=== PATIENT | female | born 1930 | race Caucasian/White ===

== ENCOUNTER 2019-10-30 14:56 | Inpatient (IN) ==
[2019-10-30] MEDS ORDERED: Ondansetron 4 MG/2 ML VIAL IVP ONE (15:03)
[2019-10-30] MEDS ORDERED: *HR* Labetalol 20 MG/4 ML SYRINGE IVP ONE (15:03)
[2019-10-30 15:32] LABS: Basophils # 0.1 K/mcL (0.0-0.2); Basophils % 0.9 %; Eosinophils # 0.1 K/mcL (0.0-0.6); Eosinophils % 1.6 %; Hemoglobin 14.4 g/dL (11.5-15.4); Immature Granulocytes % 0.2 % (0-4); Lymphocytes % 17.1 %; Mean Corpuscular HGB Conc 33.5 g/dL (31.6-35.5); Mean Corpuscular Hemoglobin 30.1 pg (28.0-33.3); Mean Corpuscular Volume 89.8 fL (83.0-100.0); Mean Platelet Volume 9.8 fL (9.4-12.4); Monocytes # 0.4 K/mcL (0.0-1.3); Monocytes % 7.6 %; Neutrophils # 4.1 K/mcL (1.6-8.9); Platelet Count 193 K/mcL (140-400); Red Blood Count 4.79 M/mcL (3.82-4.97); Segmented Neutrophils % 72.6 %; White Blood Count 5.6 K/mcL (4.3-11.1)
[2019-10-30 15:43] LABS: Prothrombin Time 11.4 Seconds (9.4-12.1)
[2019-10-30 15:59] LABS: Alanine Aminotransferase 16 Units/L (7-52); Albumin 4.5 g/dL (3.5-5.7); Albumin/Globulin Ratio 1.4 (1.1-2.2); Alkaline Phosphatase 55 Units/L (34-104); Aspartate Amino Transferase 23 Units/L (13-39); BUN/Creatinine Ratio 23 (6-26); Bilirubin,Direct 0.1 mg/dL (0.0-0.2); Bilirubin,Indirect 0.7 mg/dL (0.0-1.0); Bilirubin,Total 0.8 mg/dL (0.3-1.0); Blood Urea Nitrogen 17 mg/dL (8-23); Calcium 9.8 mg/dL (8.6-10.3); Carbon Dioxide 27 mEq/L (23-29); Chloride 96 mEq/L (98-107); Globulin 3.2 g/dL (2.4-3.5); Glucose 121 mg/dL (70-105); Lipase 29 Units/L (11-82); Osmolality,Calculated 279 (280-300); Potassium 3.9 mEq/L (3.5-5.1); Sodium 133 mEq/L (136-145); Total Protein 7.7 g/dL (6.4-8.9); Troponin I < 0.03 ng/mL (< 0.04); eGFR For African Americans > 60 (> 60); eGFR For Non-African Americans > 60 (> 60)
[2019-10-30] MEDS ORDERED: *HR* OxyCODONE/APAP 5/325 TABLET PO ONE (16:49)
[2019-10-30] MEDS ORDERED: Aspirin 325 MG TABLET PO ONE (17:06)
[2019-10-30] MEDS ORDERED: Ondansetron 4 MG/2 ML VIAL IVP PRN (17:48)
[2019-10-30] MEDS ORDERED: Acetaminophen 325 MG TABLET PO PRN (17:48)
[2019-10-30] MEDS ORDERED: Naloxone 0.4 MG/ML INJ IVP PRN (17:48)
[2019-10-30] MEDS ORDERED: *HR* Labetalol 20 MG/4 ML SYRINGE IVP PRN (17:54)
[2019-10-30 21:09] LABS: Bilirubin,Urine Negative (Negative); Blood,Urine Trace (Negative); Clarity,Urine Clear (Clear); Color,Urine Yellow (Yellow); Glucose,Urine (UA) Normal (Normal); Ketones,Urine Negative (Negative); Leukocyte Esterase,Urine Negative (Negative); Nitrite,Urine Negative (Negative); Protein,Urine 30 mg/dL (Neg-Trace); Specific Gravity,Urine 1.013 (1.010-1.025); Urobilinogen,Urine Normal (Normal)
[2019-10-30 21:11] LABS: Bacteria,Urine None Seen per hpf (None-Few); Hyaline Casts,Urine None Seen per lpf (None-Few); Squamous Epithelial Cell,Urine Few per lpf (None-Few); WBC,Urine 0-3 per hpf (0-3)
[2019-10-30] MEDS ORDERED: Morphine Sulfate 2 MG/ML SYRINGE IVP ONE (21:19)
[2019-10-30] MEDS ORDERED: Ketorolac 15 MG/ML VIAL IVP PRN (21:31)
[2019-10-30] MEDS ORDERED: Gabapentin 300 MG CAPSULE PO ONE (23:06)
[2019-10-31] MEDS: *HR* OxyCODONE/APAP 5/325 TABLET PO PRN ×3 (02:37→23:22)
[2019-10-31 04:21] LABS: BUN/Creatinine Ratio 25 (6-26); Blood Urea Nitrogen 16 mg/dL (8-23); Calcium 9.3 mg/dL (8.6-10.3); Carbon Dioxide 26 mEq/L (23-29); Chloride 97 mEq/L (98-107); Chol/HDL Ratio 2.7 (0-4.9); Cholesterol 159 mg/dL (< 200); Glucose 102 mg/dL (70-105); HDL Cholesterol 60 mg/dL (40-59); LDL Cholesterol,Calculated 86 mg/dL (0-99); Osmolality,Calculated 275 (280-300); Potassium 3.6 mEq/L (3.5-5.1); Sodium 132 mEq/L (136-145); Triglycerides 64 mg/dL (< 150); eGFR For African Americans > 60 (> 60); eGFR For Non-African Americans > 60 (> 60)
[2019-10-31] MEDS: Aspirin Enteric Coated 81 MG Tablet PO SCH (08:02)
[2019-10-31] MEDS: Gabapentin 300 MG CAPSULE PO SCH ×3 (08:24→21:55)
[2019-10-31 15:33] LABS: Estimated Average Glucose 126 mg/dl
[2019-11-01] MEDS: *HR* OxyCODONE/APAP 5/325 TABLET PO PRN ×2 (06:19→12:23)
[2019-11-01] MEDS ORDERED: *HR* Labetalol 20 MG/4 ML SYRINGE IVP PRN (07:54)
[2019-11-01 08:18] LABS: BUN/Creatinine Ratio 31 (6-26); Blood Urea Nitrogen 20 mg/dL (8-23); Calcium 9.5 mg/dL (8.6-10.3); Carbon Dioxide 29 mEq/L (23-29); Chloride 99 mEq/L (98-107); Glucose 81 mg/dL (70-105); Osmolality,Calculated 282 (280-300); Potassium 3.4 mEq/L (3.5-5.1); Sodium 135 mEq/L (136-145); eGFR For African Americans > 60 (> 60); eGFR For Non-African Americans > 60 (> 60)
[2019-11-01 08:40] LABS: Magnesium 1.8 mg/dL (1.6-2.6); Phosphorous 2.8 mg/dL (2.7-4.5)
[2019-11-01] MEDS: Aspirin Enteric Coated 81 MG Tablet PO SCH (08:59)
[2019-11-01] MEDS: Gabapentin 300 MG CAPSULE PO SCH (08:59)
[2019-11-01] MEDS ORDERED: atenoloL 25 MG TABLET PO SCH (09:00)
[2019-11-01] MEDS ORDERED: amLODIPine 5 MG TABLET PO SCH (09:00)
[2019-11-01 11:24] VITALS: BP 126/70
[2019-11-01] MEDS ORDERED: *HR* Heparin 5,000 UNIT/ML VIAL SQ SCH (18:00)
== END 2019-11-01 13:49 | DRG 305 ==
LOC: EMEROOARM 14:56 → 3BNU 14:56 → SUATTDRO 17:15 → 3BNU 17:45
PROVIDERS: ADMIT Internal Medicine; ATTEND Internal Medicine

== ENCOUNTER 2020-05-31 09:55 | Inpatient (IN) ==
[2020-05-31 11:22] LABS: Basophils % 0.1 %; Hematocrit 46.8 % (35.3-44.9); Hemoglobin 15.5 g/dL (11.5-15.4); Immature Granulocytes % 0.3 % (0-4); Lymphocytes # 0.7 K/mcL (0.6-4.6); Mean Corpuscular HGB Conc 33.1 g/dL (31.6-35.5); Mean Corpuscular Hemoglobin 29.1 pg (28.0-33.3); Mean Corpuscular Volume 87.8 fL (83.0-100.0); Monocytes # 0.9 K/mcL (0.0-1.3); Monocytes % 12.9 %; Neutrophils # 5.3 K/mcL (1.6-8.9); Platelet Count 151 K/mcL (140-400); Red Blood Count 5.33 M/mcL (3.82-4.97); Red Cell Distribution Width 15.2 % (11.5-14.5); Segmented Neutrophils % 76.7 %; White Blood Count 6.9 K/mcL (4.3-11.1)
[2020-05-31 11:27] LABS: INR 1.2; Prothrombin Time 13.3 Seconds (9.4-12.1)
[2020-05-31 11:46] LABS: BUN/Creatinine Ratio 39 (6-26); Blood Urea Nitrogen 32 mg/dL (8-23); Calcium 9.3 mg/dL (8.6-10.3); Carbon Dioxide 28 mEq/L (23-29); Chloride 93 mEq/L (98-107); Glucose 95 mg/dL (70-105); Osmolality,Calculated 285 (280-300); Sodium 134 mEq/L (136-145); Troponin I 0.08 ng/mL (< 0.04); eGFR For African Americans > 60 (> 60); eGFR For Non-African Americans > 60 (> 60)
[2020-05-31] MEDS ORDERED: cefTRIAXone 1,000 MG in 0.9 % Sodium Chloride Mini Bag 100 ML IVPB ONE (11:57)
[2020-05-31] MEDS ORDERED: Azithromycin 500 MG in 0.9 % Sodium Chloride 250 ML IVPB ONE (11:57)
[2020-05-31] MEDS ORDERED: Potassium Effervescent 25 MEQ TABLET.EFF PO ONE (11:57)
[2020-05-31 12:00] LABS: Creatine Kinase 7032 Units/L (30-223)
[2020-05-31 12:09] LABS: Bilirubin,Urine Negative (Negative); Blood,Urine Large (Negative); Clarity,Urine Clear (Clear); Color,Urine Yellow (Yellow); Glucose,Urine (UA) Normal (Normal); Ketones,Urine 20 mg/dL (Negative); Leukocyte Esterase,Urine Negative (Negative); Mucus,Urine Few per lpf (None-Few); Nitrite,Urine Negative (Negative); PH,Urine 6.5 pH Units (5.0-8.0); Protein,Urine >=300 mg/dL (Neg-Trace); Specific Gravity,Urine 1.025 (1.010-1.025); Squamous Epithelial Cell,Urine Few per hpf (None-Few); Urobilinogen,Urine Normal (Normal)
[2020-05-31 12:28] LABS: Amphetamine Screen,Urine Negative ng/mL (Cutoff=1000); Barbiturate Screen,Urine Negative ng/mL (Cutoff=200); Benzodiazepines Screen,Urine Negative ng/mL (Cutoff=200); Cannabinoid Screen,Urine Negative ng/mL (Cutoff = 50); Cocaine Screen,Urine Negative ng/mL (Cutoff= 300); Opiate Screen,Urine Negative ng/mL (Cutoff=300); Phencyclidine Screen,Urine Negative ng/mL (Cutoff=25)
[2020-05-31] MEDS ORDERED: Aspirin 81 MG TAB.CHEW PO ONE (12:42)
[2020-05-31] MEDS ORDERED: 0.9 % Sodium Chloride 1,000 ML IVC SCH (12:45)
[2020-05-31] MEDS ORDERED: Naloxone 0.4 MG/ML INJ IVP PRN (14:27)
[2020-05-31 17:39] LABS: Fibrinogen 230 mg/dL (169-393)
[2020-05-31 17:41] LABS: D-Dimer 1043 ng/mLFEU (0-500)
[2020-05-31 18:02] LABS: Albumin 3.6 g/dL (3.5-5.7); Albumin/Globulin Ratio 1.2 (1.1-2.2); Bilirubin,Direct 0.2 mg/dL (0.0-0.2); Bilirubin,Indirect 1.1 mg/dL (0.0-1.0); Bilirubin,Total 1.3 mg/dL (0.3-1.0); Globulin 3.1 g/dL (2.4-3.5); Total Protein 6.7 g/dL (6.4-8.9)
[2020-05-31] MEDS: *HR* Heparin 5,000 UNIT/ML VIAL SQ SCH (18:09)
[2020-05-31] MEDS: *HR* Metoprolol 5 MG/5 ML VIAL IVP PRN ×2 (20:33→22:07)
[2020-06-01] MEDS: DilTIAZem 50 MG/50 ML IV.SOLN IVC SCH ×7 (00:32→22:31)
[2020-06-01] MEDS ORDERED: Morphine Sulfate 2 MG/ML SYRINGE IVP ONE (00:54)
[2020-06-01 03:23] LABS: Basophils % 0.2 %; Hematocrit 45.1 % (35.3-44.9); Hemoglobin 15.2 g/dL (11.5-15.4); Immature Granulocytes % 0.5 % (0-4); Lymphocytes # 0.6 K/mcL (0.6-4.6); Lymphocytes % 9.2 %; Mean Corpuscular HGB Conc 33.7 g/dL (31.6-35.5); Mean Corpuscular Hemoglobin 29.8 pg (28.0-33.3); Mean Corpuscular Volume 88.4 fL (83.0-100.0); Mean Platelet Volume 9.9 fL (9.4-12.4); Monocytes # 0.7 K/mcL (0.0-1.3); Monocytes % 11.8 %; Neutrophils # 4.7 K/mcL (1.6-8.9); Platelet Count 161 K/mcL (140-400); Red Cell Distribution Width 15.2 % (11.5-14.5); Segmented Neutrophils % 78.3 %
[2020-06-01 04:00] LABS: Alanine Aminotransferase 65 Units/L (7-52); Albumin 3.8 g/dL (3.5-5.7); Albumin/Globulin Ratio 1.2 (1.1-2.2); Alkaline Phosphatase 61 Units/L (34-104); Aspartate Amino Transferase 150 Units/L (13-39); BUN/Creatinine Ratio 43 (6-26); Bilirubin,Direct 0.2 mg/dL (0.0-0.2); Bilirubin,Indirect 1.2 mg/dL (0.0-1.0); Bilirubin,Total 1.4 mg/dL (0.3-1.0); Blood Urea Nitrogen 22 mg/dL (8-23); Calcium 9.1 mg/dL (8.6-10.3); Carbon Dioxide 28 mEq/L (23-29); Chloride 93 mEq/L (98-107); Creatine Kinase 3367 Units/L (30-223); Globulin 3.3 g/dL (2.4-3.5); Glucose 91 mg/dL (70-105); Osmolality,Calculated 283 (280-300); Potassium 2.6 mEq/L (3.5-5.1); Sodium 135 mEq/L (136-145); Total Protein 7.1 g/dL (6.4-8.9); eGFR For African Americans > 60 (> 60); eGFR For Non-African Americans > 60 (> 60)
[2020-06-01] MEDS: *HR* Heparin 5,000 UNIT/ML VIAL SQ SCH ×2 (05:36→17:55)
[2020-06-01] MEDS: cefTRIAXone 1,000 MG in Water for inj. (sterile) 10 ML IVP SCH (08:12)
[2020-06-01 08:30] LABS: Magnesium 1.7 mg/dL (1.6-2.6); Phosphorous 1.9 mg/dL (2.7-4.5)
[2020-06-01] MEDS ORDERED: Potassium Phosphate 44 MEQ in 0.9 % Sodium Chloride 250 ML IVPB ONE (09:44)
[2020-06-01] MEDS ORDERED: Acetaminophen 325 MG TABLET PO ONE (11:55)
[2020-06-01] MEDS: Azithromycin 500 MG in 0.9 % Sodium Chloride 250 ML IVPB SCH (12:11)
[2020-06-01 13:27] LABS: BUN/Creatinine Ratio 43 (6-26); Blood Urea Nitrogen 22 mg/dL (8-23); Calcium 9.1 mg/dL (8.6-10.3); Carbon Dioxide 27 mEq/L (23-29); Chloride 93 mEq/L (98-107); Glucose 98 mg/dL (70-105); Osmolality,Calculated 281 (280-300); Potassium 3.2 mEq/L (3.5-5.1); Sodium 134 mEq/L (136-145); eGFR For African Americans > 60 (> 60); eGFR For Non-African Americans > 60 (> 60)
[2020-06-01] MEDS ORDERED: 0.9 % Sodium Chloride 1,000 ML IVC SCH (13:30)
[2020-06-01] MEDS ORDERED: *HR* Metoprolol 5 MG/5 ML VIAL IVP PRN (18:11)
[2020-06-01] MEDS: *HR* OxyCODONE Immed Rel 5 MG TABLET PO PRN ×2 (18:26→22:36)
[2020-06-01] MEDS: Gabapentin 300 MG CAPSULE PO SCH (21:01)
[2020-06-02] MEDS: DilTIAZem 50 MG/50 ML IV.SOLN IVC SCH ×5 (01:37→23:48)
[2020-06-02] MEDS: *HR* OxyCODONE Immed Rel 5 MG TABLET PO PRN ×4 (03:20→19:38)
[2020-06-02] MEDS: *HR* Heparin 5,000 UNIT/ML VIAL SQ SCH ×2 (05:03→17:16)
[2020-06-02 06:15] LABS: Basophils % 0.1 %; Hematocrit 43.1 % (35.3-44.9); Hemoglobin 14.2 g/dL (11.5-15.4); Immature Granulocytes % 0.4 % (0-4); Lymphocytes # 0.4 K/mcL (0.6-4.6); Lymphocytes % 5.8 %; Mean Corpuscular HGB Conc 32.9 g/dL (31.6-35.5); Mean Corpuscular Hemoglobin 28.9 pg (28.0-33.3); Mean Corpuscular Volume 87.6 fL (83.0-100.0); Mean Platelet Volume 9.9 fL (9.4-12.4); Monocytes # 0.6 K/mcL (0.0-1.3); Monocytes % 9.3 %; Neutrophils # 5.8 K/mcL (1.6-8.9); Platelet Count 170 K/mcL (140-400); Red Blood Count 4.92 M/mcL (3.82-4.97); Red Cell Distribution Width 15.4 % (11.5-14.5); Segmented Neutrophils % 84.4 %; White Blood Count 6.9 K/mcL (4.3-11.1)
[2020-06-02 06:38] LABS: BUN/Creatinine Ratio 52 (6-26); Blood Urea Nitrogen 23 mg/dL (8-23); Calcium 8.5 mg/dL (8.6-10.3); Carbon Dioxide 24 mEq/L (23-29); Chloride 98 mEq/L (98-107); Glucose 96 mg/dL (70-105); Magnesium 1.7 mg/dL (1.6-2.6); Osmolality,Calculated 286 (280-300); Phosphorous 1.8 mg/dL (2.7-4.5); Sodium 136 mEq/L (136-145); eGFR For African Americans > 60 (> 60); eGFR For Non-African Americans > 60 (> 60)
[2020-06-02] MEDS ORDERED: Potassium Phosphate 44 MEQ in 0.9 % Sodium Chloride 250 ML IVPB ONE (07:35)
[2020-06-02] MEDS: atenoloL 25 MG TABLET PO SCH (08:52)
[2020-06-02] MEDS: cefTRIAXone 1,000 MG in Water for inj. (sterile) 10 ML IVP SCH (08:52)
[2020-06-02] MEDS: Gabapentin 300 MG CAPSULE PO SCH ×3 (08:52→19:38)
[2020-06-02] MEDS: Azithromycin 500 MG in 0.9 % Sodium Chloride 250 ML IVPB SCH (10:36)
[2020-06-03] MEDS: *HR* OxyCODONE Immed Rel 5 MG TABLET PO PRN ×4 (00:07→22:39)
[2020-06-03] MEDS: *HR* Metoprolol 5 MG/5 ML VIAL IVP PRN (03:06)
[2020-06-03 03:42] LABS: BUN/Creatinine Ratio 66 (6-26); Blood Urea Nitrogen 31 mg/dL (8-23); Calcium 8.1 mg/dL (8.6-10.3); Carbon Dioxide 30 mEq/L (23-29); Chloride 102 mEq/L (98-107); Glucose 106 mg/dL (70-105); Magnesium 2.3 mg/dL (1.6-2.6); Osmolality,Calculated 293 (280-300); Phosphorous 1.8 mg/dL (2.7-4.5); Potassium 3.7 mEq/L (3.5-5.1); Sodium 138 mEq/L (136-145); eGFR For African Americans > 60 (> 60); eGFR For Non-African Americans > 60 (> 60)
[2020-06-03] MEDS: *HR* Heparin 5,000 UNIT/ML VIAL SQ SCH ×2 (04:39→16:30)
[2020-06-03] MEDS ORDERED: Potassium Phosphate 44 MEQ in 0.9 % Sodium Chloride 250 ML IVPB ONE (07:28)
[2020-06-03] MEDS: cefTRIAXone 1,000 MG in Water for inj. (sterile) 10 ML IVP SCH (08:07)
[2020-06-03] MEDS: Azithromycin 500 MG in 0.9 % Sodium Chloride 250 ML IVPB SCH (08:07)
[2020-06-03] MEDS: Gabapentin 300 MG CAPSULE PO SCH ×3 (08:08→20:22)
[2020-06-03] MEDS: atenoloL 25 MG TABLET PO SCH (08:08)
[2020-06-03] MEDS ORDERED: *HR* OxyCODONE Immed Rel 5 MG TABLET PO PRN ×2 (10:21→11:51)
[2020-06-04] MEDS: *HR* Heparin 5,000 UNIT/ML VIAL SQ SCH ×2 (05:13→17:58)
[2020-06-04] MEDS: *HR* Metoprolol 5 MG/5 ML VIAL IVP PRN (05:14)
[2020-06-04] MEDS: *HR* OxyCODONE Immed Rel 5 MG TABLET PO PRN ×2 (05:14→19:53)
[2020-06-04 08:14] LABS: VBG Ionized Calcium 1.08 mmol/L (1.15-1.35)
[2020-06-04] MEDS ORDERED: Furosemide 40 MG/4 ML VIAL IVP ONE (08:16)
[2020-06-04] MEDS ORDERED: *HR* OxyCODONE Immed Rel 5 MG TABLET PO PRN (08:18)
[2020-06-04 08:32] LABS: BUN/Creatinine Ratio 63 (6-26); Blood Urea Nitrogen 29 mg/dL (8-23); Calcium 8.7 mg/dL (8.6-10.3); Carbon Dioxide 32 mEq/L (23-29); Chloride 103 mEq/L (98-107); Glucose 109 mg/dL (70-105); Magnesium 2.1 mg/dL (1.6-2.6); Osmolality,Calculated 296 (280-300); Phosphorous 1.5 mg/dL (2.7-4.5); Potassium 4.2 mEq/L (3.5-5.1); Sodium 140 mEq/L (136-145); eGFR For African Americans > 60 (> 60); eGFR For Non-African Americans > 60 (> 60)
[2020-06-04] MEDS: cefTRIAXone 1,000 MG in Water for inj. (sterile) 10 ML IVP SCH (09:23)
[2020-06-04] MEDS: Gabapentin 300 MG CAPSULE PO SCH ×3 (09:23→19:52)
[2020-06-04] MEDS: atenoloL 25 MG TABLET PO SCH (09:23)
[2020-06-04] MEDS: Azithromycin 500 MG in 0.9 % Sodium Chloride 250 ML IVPB SCH (09:24)
[2020-06-04] MEDS: Dexamethasone 4 MG/ML VIAL IVP SCH (09:25)
[2020-06-04] MEDS ORDERED: Acetaminophen IV 1,000 MG/100 ML BAG IVPB ONE (09:30)
[2020-06-04] MEDS ORDERED: Potassium Phosphate 44 MEQ in 0.9 % Sodium Chloride 250 ML IVPB ONE (13:31)
[2020-06-04] MEDS ORDERED: *HR* LORazepam 0.5 MG TABLET PO PRN (13:33)
[2020-06-04] MEDS ORDERED: Calcium Gluconate 1gm/50mL 1 GM/50 ML BAG IVPB ONE (13:35)
[2020-06-04 14:40] LABS: Alanine Aminotransferase 38 Units/L (7-52); Albumin 3.2 g/dL (3.5-5.7); Albumin/Globulin Ratio 0.9 (1.1-2.2); Alkaline Phosphatase 57 Units/L (34-104); Aspartate Amino Transferase 53 Units/L (13-39); Bilirubin,Direct 0.3 mg/dL (0.0-0.2); Bilirubin,Indirect 0.7 mg/dL (0.0-1.0); Globulin 3.4 g/dL (2.4-3.5); Total Protein 6.6 g/dL (6.4-8.9)
[2020-06-04] MEDS: *HR* LORazepam 0.5 MG TABLET PO PRN (19:52)
[2020-06-04] MEDS ORDERED: Furosemide 20 MG/2 ML VIAL IVP ONE (20:00)
[2020-06-05] MEDS: *HR* OxyCODONE Immed Rel 5 MG TABLET PO PRN ×2 (03:28→08:47)
[2020-06-05] MEDS: *HR* LORazepam 0.5 MG TABLET PO PRN ×3 (03:29→21:47)
[2020-06-05] MEDS: *HR* Heparin 5,000 UNIT/ML VIAL SQ SCH (05:16)
[2020-06-05 05:54] LABS: Basophils % 0.5 %; Hematocrit 43.2 % (35.3-44.9); Hemoglobin 13.7 g/dL (11.5-15.4); Lymphocytes # 0.3 K/mcL (0.6-4.6); Lymphocytes % 3.4 %; Mean Corpuscular HGB Conc 31.7 g/dL (31.6-35.5); Mean Corpuscular Hemoglobin 28.4 pg (28.0-33.3); Mean Corpuscular Volume 89.6 fL (83.0-100.0); Mean Platelet Volume 9.8 fL (9.4-12.4); Monocytes # 0.5 K/mcL (0.0-1.3); Monocytes % 5.9 %; Neutrophils # 6.7 K/mcL (1.6-8.9); Platelet Count 209 K/mcL (140-400); Red Blood Count 4.82 M/mcL (3.82-4.97); Red Cell Distribution Width 15.6 % (11.5-14.5); Segmented Neutrophils % 86.2 %; White Blood Count 7.7 K/mcL (4.3-11.1)
[2020-06-05 06:18] LABS: BUN/Creatinine Ratio 73 (6-26); Blood Urea Nitrogen 30 mg/dL (8-23); Calcium 8.6 mg/dL (8.6-10.3); Carbon Dioxide 32 mEq/L (23-29); Chloride 101 mEq/L (98-107); Glucose 144 mg/dL (70-105); Magnesium 1.9 mg/dL (1.6-2.6); Osmolality,Calculated 299 (280-300); Phosphorous 2.2 mg/dL (2.7-4.5); Potassium 3.8 mEq/L (3.5-5.1); Sodium 140 mEq/L (136-145); eGFR For African Americans > 60 (> 60); eGFR For Non-African Americans > 60 (> 60)
[2020-06-05] MEDS ORDERED: Potassium Phosphate 44 MEQ in 0.9 % Sodium Chloride 250 ML IVPB ONE (07:18)
[2020-06-05] MEDS ORDERED: Furosemide 40 MG/4 ML VIAL IVP ONE (07:18)
[2020-06-05] MEDS: atenoloL 25 MG TABLET PO SCH (08:48)
[2020-06-05] MEDS: Gabapentin 300 MG CAPSULE PO SCH ×3 (08:48→21:47)
[2020-06-05] MEDS: Azithromycin 500 MG in 0.9 % Sodium Chloride 250 ML IVPB SCH (08:48)
[2020-06-05] MEDS: Dexamethasone 4 MG/ML VIAL IVP SCH (08:49)
[2020-06-05] MEDS: cefTRIAXone 1,000 MG in Water for inj. (sterile) 10 ML IVP SCH (08:50)
[2020-06-05] MEDS: Pantoprazole 40 MG VIAL IVP SCH (11:34)
[2020-06-05] MEDS ORDERED: Dexamethasone 4 MG/ML VIAL IVP ONE (15:09)
[2020-06-05] MEDS ORDERED: Remdesivir 200 MG in 0.9 % Sodium Chloride 100 ML IVPB ONE (16:00)
[2020-06-05] MEDS: *HR* Metoprolol 5 MG/5 ML VIAL IVP PRN (23:22)
[2020-06-06] MEDS ORDERED: *HR* Enoxaparin 40 MG/0.4 ML SYRINGE SQ SCH ×2 (06:00→21:00)
[2020-06-06] MEDS: Gabapentin 300 MG CAPSULE PO SCH ×4 (07:34→21:46)
[2020-06-06] MEDS: Azithromycin 500 MG in 0.9 % Sodium Chloride 250 ML IVPB SCH (07:34)
[2020-06-06] MEDS: Dexamethasone 4 MG/ML VIAL IVP SCH (07:35)
[2020-06-06] MEDS: Pantoprazole 40 MG VIAL IVP SCH (07:35)
[2020-06-06 07:36] LABS: Basophils # 0.1 K/mcL (0.0-0.2); Hematocrit 49.2 % (35.3-44.9); Immature Granulocytes % 3.2 % (0-4); Lymphocytes # 0.4 K/mcL (0.6-4.6); Lymphocytes % 4.3 %; Mean Corpuscular HGB Conc 31.1 g/dL (31.6-35.5); Mean Corpuscular Hemoglobin 28.9 pg (28.0-33.3); Mean Platelet Volume 9.9 fL (9.4-12.4); Monocytes # 0.6 K/mcL (0.0-1.3); Monocytes % 6.1 %; Neutrophils # 8.2 K/mcL (1.6-8.9); Platelet Count 212 K/mcL (140-400); Red Blood Count 5.29 M/mcL (3.82-4.97); Red Cell Distribution Width 15.7 % (11.5-14.5); Segmented Neutrophils % 85.4 %; White Blood Count 9.6 K/mcL (4.3-11.1)
[2020-06-06] MEDS: cefTRIAXone 1,000 MG in Water for inj. (sterile) 10 ML IVP SCH (07:36)
[2020-06-06 07:46] LABS: INR 1.6; Prothrombin Time 18.2 Seconds (9.4-12.1)
[2020-06-06] MEDS: *HR* OxyCODONE Immed Rel 5 MG TABLET PO PRN (08:11)
[2020-06-06 08:12] LABS: Alanine Aminotransferase 31 Units/L (7-52); Albumin 2.9 g/dL (3.5-5.7); Albumin/Globulin Ratio 0.9 (1.1-2.2); Alkaline Phosphatase 68 Units/L (34-104); Aspartate Amino Transferase 52 Units/L (13-39); BUN/Creatinine Ratio 95 (6-26); Bilirubin,Total 0.8 mg/dL (0.3-1.0); Blood Urea Nitrogen 38 mg/dL (8-23); Calcium 8.7 mg/dL (8.6-10.3); Carbon Dioxide 28 mEq/L (23-29); Chloride 104 mEq/L (98-107); Globulin 3.4 g/dL (2.4-3.5); Glucose 128 mg/dL (70-105); Osmolality,Calculated 303 (280-300); Phosphorous 2.1 mg/dL (2.7-4.5); Potassium 4.2 mEq/L (3.5-5.1); Sodium 141 mEq/L (136-145); Total Protein 6.3 g/dL (6.4-8.9); eGFR For African Americans > 60 (> 60); eGFR For Non-African Americans > 60 (> 60)
[2020-06-06 08:58] LABS: Hemoglobin 15.3 g/dL (11.5-15.4)
[2020-06-06] MEDS ORDERED: Acetaminophen IV 1,000 MG/100 ML BAG IVPB ONE (10:07)
[2020-06-06] MEDS: *HR* LORazepam 0.5 MG TABLET PO PRN (10:41)
[2020-06-06] MEDS: *HR* Metoprolol 5 MG/5 ML VIAL IVP PRN (11:59)
[2020-06-06 15:17] LABS: ABG Base Excess 10 mEq/L (-2 to 3); ABG HCO3 34 mEq/L (21-27); ABG Oxygen Saturation 87 % (95-98); ABG PCO2 41 mmHg (35-45); ABG PH 7.53 pH Units (7.32-7.45); ABG PO2 48 mmHg (85-104); ABG TCO2 35 mEq/L (20-26)
[2020-06-06] MEDS: DilTIAZem 50 MG/50 ML IV.SOLN IVC SCH ×2 (15:29→22:12)
[2020-06-06] MEDS: Levalbuterol 1 PUFF INHALER IH SCH ×2 (15:51→22:53)
[2020-06-06] MEDS ORDERED: *HR* OxyCODONE Immed Rel 5 MG TABLET PO PRN ×2 (16:09→16:10)
[2020-06-06] MEDS: Furosemide 40 MG/4 ML VIAL IVP SCH (17:45)
[2020-06-06] MEDS ORDERED: *HR* Enoxaparin 40 MG/0.4 ML SYRINGE SQ ONE (17:54)
[2020-06-06] MEDS: Remdesivir 100 MG in 0.9 % Sodium Chloride 100 ML IVPB SCH (20:48)
[2020-06-07] MEDS: *HR* Metoprolol 5 MG/5 ML VIAL IVP PRN (00:44)
[2020-06-07] MEDS: *HR* LORazepam 2 MG/ML VIAL IVP PRN ×2 (01:48→18:35)
[2020-06-07] MEDS ORDERED: Dexmedetomidine HCl 400 MCG/100 ML MLS IVC ONE (03:07)
[2020-06-07] MEDS: Dexmedetomidine HCl 400 MCG/100 ML MLS IVC SCH ×2 (03:15→14:26)
[2020-06-07] MEDS: Levalbuterol 1 PUFF INHALER IH SCH ×4 (03:45→23:01)
[2020-06-07 06:15] LABS: Basophils # 0.1 K/mcL (0.0-0.2); Basophils % 0.7 %; Immature Granulocytes % 4.8 % (0-4); Lymphocytes # 0.5 K/mcL (0.6-4.6); Lymphocytes % 4.8 %; Mean Corpuscular HGB Conc 32.6 g/dL (31.6-35.5); Mean Corpuscular Hemoglobin 29.5 pg (28.0-33.3); Mean Corpuscular Volume 90.4 fL (83.0-100.0); Mean Platelet Volume 10.5 fL (9.4-12.4); Monocytes # 0.5 K/mcL (0.0-1.3); Monocytes % 5.7 %; Neutrophils # 7.9 K/mcL (1.6-8.9); Nucleated Red Blood Cells 0.2 /100 WBC (0); Platelet Count 186 K/mcL (140-400); Red Blood Count 5.09 M/mcL (3.82-4.97); Red Cell Distribution Width 15.5 % (11.5-14.5); White Blood Count 9.4 K/mcL (4.3-11.1)
[2020-06-07 06:23] LABS: INR 1.7; Prothrombin Time 19.9 Seconds (9.4-12.1)
[2020-06-07 06:41] LABS: Platelet Estimate Normal (Normal); Reactive Lymphocytes Present (Not Present)
[2020-06-07 06:44] LABS: Magnesium 2.1 mg/dL (1.6-2.6); Phosphorous 2.6 mg/dL (2.7-4.5)
[2020-06-07 06:45] LABS: Alanine Aminotransferase 32 Units/L (7-52); Albumin 2.7 g/dL (3.5-5.7); Albumin/Globulin Ratio 0.8 (1.1-2.2); Alkaline Phosphatase 72 Units/L (34-104); Aspartate Amino Transferase 44 Units/L (13-39); BUN/Creatinine Ratio 109 (6-26); Bilirubin,Total 0.8 mg/dL (0.3-1.0); Blood Urea Nitrogen 47 mg/dL (8-23); Calcium 8.9 mg/dL (8.6-10.3); Carbon Dioxide 31 mEq/L (23-29); Chloride 106 mEq/L (98-107); Globulin 3.2 g/dL (2.4-3.5); Glucose 166 mg/dL (70-105); Osmolality,Calculated 320 (280-300); Potassium 3.4 mEq/L (3.5-5.1); Sodium 147 mEq/L (136-145); Total Protein 5.9 g/dL (6.4-8.9); eGFR For African Americans > 60 (> 60); eGFR For Non-African Americans > 60 (> 60)
[2020-06-07] MEDS: Furosemide 40 MG/4 ML VIAL IVP SCH (08:11)
[2020-06-07] MEDS: Pantoprazole 40 MG VIAL IVP SCH (08:11)
[2020-06-07] MEDS: Dexamethasone 4 MG/ML VIAL IVP SCH (08:11)
[2020-06-07] MEDS: Gabapentin 300 MG CAPSULE PO SCH (08:11)
[2020-06-07 09:07] LABS: ABG Base Excess 11 mEq/L (-2 to 3); ABG HCO3 36 mEq/L (21-27); ABG Oxygen Saturation 97 % (95-98); ABG PCO2 49 mmHg (35-45); ABG PH 7.48 pH Units (7.32-7.45); ABG PO2 88 mmHg (85-104); ABG TCO2 38 mEq/L (20-26)
[2020-06-07] MEDS: Remdesivir 100 MG in 0.9 % Sodium Chloride 100 ML IVPB SCH (15:46)
[2020-06-07] MEDS: *HR* Enoxaparin 40 MG/0.4 ML SYRINGE SQ SCH (15:46)
[2020-06-07 23:58] LABS: ABG Base Excess 9 mEq/L (-2 to 3); ABG HCO3 32 mEq/L (21-27); ABG Oxygen Saturation 97 % (95-98); ABG PCO2 38 mmHg (35-45); ABG PH 7.53 pH Units (7.32-7.45); ABG PO2 83 mmHg (85-104); ABG TCO2 33 mEq/L (20-26); Blood Gas VT 500 cc
[2020-06-08] MEDS: Levalbuterol 1 PUFF INHALER IH SCH ×2 (04:05→10:35)
[2020-06-08] MEDS: Dexmedetomidine HCl 400 MCG/100 ML MLS IVC SCH (04:18)
[2020-06-08 05:44] LABS: INR 2.5; Prothrombin Time 28.5 Seconds (9.4-12.1)
[2020-06-08 05:48] LABS: Mean Corpuscular HGB Conc 32.2 g/dL (31.6-35.5); Mean Corpuscular Volume 90.2 fL (83.0-100.0); Mean Platelet Volume 10.4 fL (9.4-12.4); Platelet Count 119 K/mcL (140-400); Red Blood Count 6.13 M/mcL (3.82-4.97); Red Cell Distribution Width 15.8 % (11.5-14.5)
[2020-06-08 05:56] LABS: Hematocrit 55.3 % (35.3-44.9); Hemoglobin 17.8 g/dL (11.5-15.4); White Blood Count 14.7 K/mcL (4.3-11.1)
[2020-06-08 05:57] LABS: VBG HCO3 26 mEq/L (21-27); VBG PCO2 36 mmHg (41-51); VBG PH 7.46 pH Units (7.32-7.42); VBG PO2 97 mmHg (25-50)
[2020-06-08] MEDS ORDERED: *HR* Enoxaparin 40 MG/0.4 ML SYRINGE SQ SCH (06:00)
[2020-06-08 06:07] LABS: Alanine Aminotransferase 335 Units/L (7-52); Albumin 2.9 g/dL (3.5-5.7); Albumin/Globulin Ratio 0.8 (1.1-2.2); Alkaline Phosphatase 103 Units/L (34-104); Aspartate Amino Transferase 812 Units/L (13-39); BUN/Creatinine Ratio 77 (6-26); Bilirubin,Total 2.7 mg/dL (0.3-1.0); Blood Urea Nitrogen 70 mg/dL (8-23); Calcium 9.4 mg/dL (8.6-10.3); Carbon Dioxide 24 mEq/L (23-29); Chloride 105 mEq/L (98-107); Globulin 3.7 g/dL (2.4-3.5); Glucose 144 mg/dL (70-105); Osmolality,Calculated 331 (280-300); Potassium 4.2 mEq/L (3.5-5.1); Sodium 149 mEq/L (136-145); Total Protein 6.6 g/dL (6.4-8.9); eGFR For African Americans > 60 (> 60); eGFR For Non-African Americans 58 (> 60)
[2020-06-08] MEDS: Pantoprazole 40 MG VIAL IVP SCH (08:31)
[2020-06-08] MEDS: *HR* Enoxaparin 40 MG/0.4 ML SYRINGE SQ SCH (08:32)
[2020-06-08] MEDS: *HR* Metoprolol 5 MG/5 ML VIAL IVP PRN (08:32)
[2020-06-08] MEDS: Dexamethasone 4 MG/ML VIAL IVP SCH (08:32)
[2020-06-08] MEDS: *HR* LORazepam 2 MG/ML VIAL IVP PRN (08:32)
[2020-06-08] MEDS ORDERED: Furosemide 40 MG/4 ML VIAL IVP SCH (09:00)
[2020-06-08] MEDS ORDERED: Dexamethasone Sodium Phos/PF 10 MG/ML VIAL IVP SCH (09:00)
[2020-06-08] MEDS ORDERED: *HR* FentaNYL (PF) 100 MCG/2 ML VIAL IVP ONE ×2 (09:06)
[2020-06-08] MEDS ORDERED: *HR* LORazepam 2 MG/ML VIAL IVP PRN (09:27)
[2020-06-08] MEDS ORDERED: Atropine 1% Opth Drops 100 DROP/5 ML BOTTLE SL PRN (09:28)
[2020-06-08] MEDS ORDERED: Haloperidol Lactate 5 MG/ML VIAL IVP PRN (09:28)
[2020-06-08] MEDS ORDERED: *HR* FentaNYL (PF) 100 MCG/2 ML VIAL IVP PRN ×2 (09:30→10:15)
[2020-06-08 10:40] VITALS: BP 74/54
[2020-06-08] MEDS: *HR* FentaNYL (PF) 100 MCG/2 ML VIAL IVP PRN ×2 (11:30→12:45)
[2020-06-11] MEDS ORDERED: Dexamethasone Sodium Phos/PF 10 MG/ML VIAL IVP SCH (09:00)
== END 2020-06-08 14:35 | disposition expired | DRG 177 ==
LOC: 2NENU 09:55 → EMEROOARM 09:55 → SUATTDRO 13:35 → 2NENU 14:39 → SUATTDRO 06-01 18:49 → 2NENU 06-04 22:36
PROVIDERS: ADMIT General Practice; ATTEND Internal Medicine